=== PATIENT | male | born 1965 | race Caucasian/White ===

== ENCOUNTER 2018-09-20 00:38 | Inpatient (IN) | payer MEDICAID ==
[~2018-09-20] VITALS: Ht 180.3 cm; Wt 74.8 kg
[2018-09-20] VITALS (8 sets, daily range): BP systolic 98–142; BP diastolic 37–87
[~2018-09-20 00:38] MED LIST: ASPIR 8181 MG PO; AUGMENTIN 875875 MG PO; CIPROFLOXACIN500 M1 PO; CRANBERRY; DURAGESIC1 EAC2 TRANSDERM; EFFEXOR XR75 MG PO; ENDOCET 10-3251 EACH PO; K-DUR 20 MEQ T20 MEQ PO; KEFLEX500 MG PO; MIRALAX17 GM PO; MUCINEX600 MG PO; NEURONTIN 300300 M1 PO; PRILOSEC 10MG C10 MG PO; PRILOSEC20 MG PO; SENOKOT8.6 MG PO; VITAMIN D5000 UNIT PO; [UNRECOGNIZED DRUG - OTHER] IRRIG
[2018-09-20] MEDS ORDERED: OYSTER SHELL 51 EACH PO (01:01)
[2018-09-20] MEDS ORDERED: LASIX 40 MG TAB40 M2 PO (01:01)
[2018-09-20] MEDS ORDERED: CLONIDINE0.1 PO (01:03)
[2018-09-20 01:12] LABS: HEMATOCRIT 43.4 % (42.0-52.0); HEMOGLOBIN 14.8 gm/dL (14.0-18.0); MCH 30.9 pg (26.0-34.0); MCHC 34.2 g/dL (28.0-37.0); MCV 90.2 fL (80.0-100.0); MPV 7.7 fl. (7.2-11.1); NUCLEATED RBCS 0 /100WBC; PLATELET COUNT* 257 thou/uL (150-400); RBC 4.81 mil/uL (4.50-6.00); WBC 5.8 thou/uL (4.0-11.0)
[2018-09-20 01:31] LABS: ANION GAP 7 mmol/L (7-16); BUN 15 mg/dL (7-18); CALCIUM 8.5 mg/dL (8.5-10.1); CHLORIDE 101 mmol/L (98-107); CO2 29 mmol/L (21-32); CREATININE 0.9 mg/dL (0.6-1.3); GLUCOSE 118 mg/dL (70-99); POTASSIUM 3.6 mmol/L (3.5-5.1); SODIUM 137 mmol/L (136-145)
[2018-09-20 01:42] LABS: ALBUMIN 3.6 g/dL (3.4-5.0); ALKALINE PHOSPHATASE 86 U/L (46-116); LIPASE 665 U/L (73-393); NT-PRO BRAIN NAT PEPTIDE 78 pg/mL (<300); SGOT 24 U/L (15-37); SGPT 44 U/L (30-65); TOTAL BILIRUBIN 0.3 mg/dL (<0.1-1.0); TOTAL PROTEIN 7.1 g/dL (6.4-8.2); TROPONIN-I LEVEL <0.06 ng/mL (<0.06)
[2018-09-20 01:58] LABS: URINE BLOOD 1+ (Negative); URINE CLARITY CLEAR; URINE COLOR DARK YELLOW; URINE GLUCOSE-RANDOM NEGATIVE (Negative); URINE KETONES TRACE (Negative); URINE LEUKOCYTES-REFLEX 1+ (Negative); URINE NITRITE-REFLEX NEGATIVE (Negative); URINE PROTEIN 1+ (Negative); URINE SPECIFIC GRAVITY >= 1.030 (1.005-1.030); URINE UROBILINOGEN 0.2 E.U./dl (0.2-1.0)
[2018-09-20 01:59] LABS: ICTOTEST (BILI CONFIRMATORY) Negative (Negative); URINE BILIRUBIN 1+ (Negative)
[2018-09-20 02:00] LABS: CASTS None Seen /LPF (None Seen); MUCUS 4-6 Moderate strn/LPF (None Seen); SQUAMOUS 0-3 Few /LPF (0-3); URINE RBC >20 Many /HPF (0-2)
[2018-09-20 02:00] LABS: INFLUENZA A ANTIGEN None Detected (None Detect); INFLUENZA B ANTIGEN None Detected (None Detect)
[2018-09-20 02:02] LABS: TRIPLE PHOSPHATE CRYSTALS 0-3 Few /LPF (None Seen)
[2018-09-20 03:45] LABS: ABSOLUTE BASOPHILS 0.1 thou/uL (0.0-0.2); ABSOLUTE EOSINOPHILS 0.2 thou/uL (0.0-0.7); ABSOLUTE LYMPHOCYTES 0.5 thou/uL (0.8-5.3); ABSOLUTE MONOCYTES 0.2 thou/uL (0.0-1.2); ABSOLUTE NEUTROPHILS 4.8 thou/uL (1.6-8.1); ANISOCYTOSIS 1+; PLATELET ESTIMATE ADEQUATE; TOXIC GRANULATION 1+
--- NOTE | 2018-09-20 09:39 | EKG ---
[place] [address] ELECTROCARDIOGRAM REPORT Name: ANAM DOUGLASS Room: [address] ADM IN [facility]#: [id number] Admission: 09/20/18 Attend Phys: Bennett Horner MD Discharge: Date of : 63 Report #: [id number] THIS REPORT FOR: //name// [facility] ED Test Date: 2018-09-20 Test Time: 01:05:12 Pat Name: ANAM DOUGLASS Department: Room: [facility] Gender: M Plane Tender: [place] : 1965 Requested By: Carlos Timmons Order Number: [id number] MD: Palmer Bernstein Measurements Intervals [place] Rate: 89 P: 30 MN: 206 QRS: 16 QRSD: 93 T: 72 QT: 345 QTc: 420 Interpretive Statements Sinus rhythm Borderline prolonged MN interval Left atrial enlargement Compared to ECG 02/20/2015 14:51:29 Atrial abnormality now present Sinus bradycardia no longer present Electronically Signed On 09-20-2018 9:38:59 [employer] by Palmer Bernstein [email or web address] <ELECTRONICALLY SIGNED> By: Palmer Bernstein MD, [facility] 09/20/18 [id number] Palmer Bernstein MD, [facility] /EPI
[2018-09-21 00:44] VITALS: BP 137/68
[2018-09-21 04:05] VITALS: BP 113/70
[2018-09-21 08:00] VITALS: BP 122/68
[2018-09-21 12:00] VITALS: BP 151/89
[2018-09-21 16:00] VITALS: BP 91/58
[2018-09-21 20:00] VITALS: BP 138/58
[2018-09-22 07:50] VITALS: BP 140/81
[2018-09-22 08:25] LABS: HEMATOCRIT 42.7 % (42.0-52.0); HEMOGLOBIN 14.7 gm/dL (14.0-18.0); MCH 30.7 pg (26.0-34.0); MCHC 34.4 g/dL (28.0-37.0); MCV 89.2 fL (80.0-100.0); MPV 7.6 fl. (7.2-11.1); RBC 4.79 mil/uL (4.50-6.00); RDW-CV 14.9 % (10.5-14.5); WBC 4.9 thou/uL (4.0-11.0)
[2018-09-22 08:38] LABS: CALCIUM 8.1 mg/dL (8.5-10.1); CREATININE 0.5 mg/dL (0.6-1.3); POTASSIUM 3.6 mmol/L (3.5-5.1)
[2018-09-22 14:33] VITALS: BP 140/81
[2018-09-22] MEDS ORDERED: CALCIUM500 M1 PO (14:38)
== END 2018-09-22 15:27 | disposition home or self-care (01) | DRG 152 ==
LOC: M.ERS 00:38 → M.TBA-ER 01:53 → M.2W 02:41 → M.ORTHSURG 09-22 02:15
PROVIDERS: Family Medicine; ADMIT Internal Medicine
DX: J06.9 Acute upper respiratory infection, unspecified (principal); G82.50 Quadriplegia, unspecified; N39.0 Urinary tract infection, site not specified; I10 Essential (primary) hypertension; G90.8 Other disorders of autonomic nervous system; F17.210 Nicotine dependence, cigarettes, uncomplicated; Z87.828 Personal history of other (healed) physical injury and trauma; Z79.899 Other long term (current) drug therapy; Z23 Encounter for immunization

== ENCOUNTER → 2018-10-01 | Outpatient (CLI) | payer MEDICAID ==
[~2018-10-01] MED LIST changes: +CALCIUM500 M1 PO; +CLONIDINE0.1 PO; +LASIX 40 MG TAB40 M2 PO; +OYSTER SHELL 51 EACH PO
== END ==
LOC: M.ULTRA 11:15
DX: N28.9 Disorder of kidney and ureter, unspecified (principal); N31.9 Neuromuscular dysfunction of bladder, unspecified

== ENCOUNTER 2018-10-05 10:22 | Emergency (ER) | payer MEDICAID ==
[~2018-10-05] VITALS: Ht 180.3 cm; Wt 72.6 kg
[2018-10-05 11:14] LABS: URINE BLOOD NEGATIVE (Negative); URINE CLARITY CLEAR; URINE COLOR YELLOW; URINE GLUCOSE-RANDOM NEGATIVE (Negative); URINE KETONES TRACE (Negative); URINE LEUKOCYTES-REFLEX 1+ (Negative); URINE NITRITE-REFLEX NEGATIVE (Negative); URINE PROTEIN TRACE (Negative); URINE SPECIFIC GRAVITY >= 1.030 (1.005-1.030); URINE UROBILINOGEN 0.2 E.U./dl (0.2-1.0)
[2018-10-05 11:17] LABS: ICTOTEST (BILI CONFIRMATORY) Positive (Negative); URINE BILIRUBIN 1+ (Negative)
[2018-10-05 11:23] LABS: SQUAMOUS 0-3 Few /LPF (0-3); URINE WBC-REFLEX 6-15 Few /HPF (0-5)
[2018-10-05 11:24] LABS: BACTERIA-REFLEX >30 Many /HPF (None Seen); CASTS None Seen /LPF (None Seen); CRYSTALS None Seen /LPF (None Seen); MUCUS 0-3 Light strn/LPF (None Seen); URINE RBC 0-2 Rare /HPF (0-2); YEAST-REFLEX Present (None Seen)
[2018-10-05] MEDS ORDERED: DIFLUCAN150 M1 PO (11:30)
[2018-10-05] MEDS ORDERED: MEDROLDOSEPACK PO (11:30)
[2018-10-05] MEDS ORDERED: HYDROXYZINE HCL25 M1 PO (11:30)
[2018-10-05] MEDS ORDERED: PEPCID40 MG PO (11:30)
[2018-10-05 12:35] VITALS: BP 117/82
== END 2018-10-05 12:40 | disposition home or self-care (01) ==
LOC: M.ERS 10:22
PROVIDERS: Nurse Practitioner Family
DX: B37.9 Candidiasis, unspecified (principal); L23.9 Allergic contact dermatitis, unspecified cause

== ENCOUNTER 2019-04-03 16:39 | Emergency (ER) | payer MEDICAID ==
[~2019-04-03] VITALS: Ht 180.3 cm; Wt 79.4 kg
[~2019-04-03 16:39] MED LIST changes: +DIFLUCAN150 M1 PO; +HYDROXYZINE HCL25 M1 PO; +MEDROLDOSEPACK PO; +PEPCID40 MG PO
[2019-04-03 18:12] VITALS: BP 104/83
== END 2019-04-03 18:21 | disposition home or self-care (01) ==
LOC: M.ERS 16:39
DX: Z46.6 Encounter for fitting and adjustment of urinary device (principal)

== ENCOUNTER → 2021-01-27 | Outpatient (CLI) | payer MEDICAID | LOC: M.WC 07:53 | PROVIDERS: ATTEND Family Medicine | DX: L89.891 Pressure ulcer of other site, stage 1 (principal); L97.512 Non-pressure chronic ulcer of other part of right foot with fat layer exposed; S91.301A Unspecified open wound, right foot, initial encounter; L84 Corns and callosities; G83.9 Paralytic syndrome, unspecified; Z79.82 Long term (current) use of aspirin; X58.XXXA Exposure to other specified factors, initial encounter; Y93.89 Activity, other specified; Y92.89 Other specified places as the place of occurrence of the external cause; Y99.8 Other external cause status ==

== ENCOUNTER → 2021-02-03 | Outpatient (CLI) | payer MEDICAID | LOC: M.WC 09:46 | PROVIDERS: ATTEND Family Medicine | DX: L89.891 Pressure ulcer of other site, stage 1 (principal); L97.512 Non-pressure chronic ulcer of other part of right foot with fat layer exposed; S91.301D Unspecified open wound, right foot, subsequent encounter; G82.20 Paraplegia, unspecified; F17.290 Nicotine dependence, other tobacco product, uncomplicated; Z79.82 Long term (current) use of aspirin; Z79.899 Other long term (current) drug therapy; X58.XXXD Exposure to other specified factors, subsequent encounter ==

== ENCOUNTER → 2021-02-17 | Outpatient (CLI) | payer MEDICAID | LOC: M.WC 10:50 | PROVIDERS: ATTEND Family Medicine | DX: L89.891 Pressure ulcer of other site, stage 1 (principal); L97.512 Non-pressure chronic ulcer of other part of right foot with fat layer exposed; S91.301D Unspecified open wound, right foot, subsequent encounter; L84 Corns and callosities; G82.20 Paraplegia, unspecified; F17.290 Nicotine dependence, other tobacco product, uncomplicated; Z79.82 Long term (current) use of aspirin; X58.XXXD Exposure to other specified factors, subsequent encounter ==

== ENCOUNTER → 2021-03-04 | Outpatient (CLI) | payer MEDICAID | LOC: M.WC 09:28 | PROVIDERS: ATTEND Family Medicine | DX: S91.301D Unspecified open wound, right foot, subsequent encounter (principal); G83.9 Paralytic syndrome, unspecified; F17.290 Nicotine dependence, other tobacco product, uncomplicated; Z79.82 Long term (current) use of aspirin; Z79.899 Other long term (current) drug therapy; X58.XXXD Exposure to other specified factors, subsequent encounter ==